=== PATIENT | female | born 1980 | race Caucasian/White ===

== ENCOUNTER 2023-05-15 14:55 | Emergency (ER) | payer OTHER, SELFPAY ==
[2023-05-15 15:04] VITALS: BP 99/50
[2023-05-15 15:37] LABS: % Basophils 0.4 % (0-2); % Eosinophils 0.1 % (0-6); % Immature Granulocytes 0.4 % (0-0.5); % Lymphocytes 15.6 % (20.5-51.1); % Monocytes 6.4 % (1.7-9.3); % Neutrophils 77.1 % (42.2-75.2); Absolute Lymphocytes 1.1 10^3/uL (1.2-3.4); Absolute Monocytes 0.4 10^3/uL (0.1-0.6); Absolute Neutrophils 5.2 10^3/uL (1.4-6.5); Hematocrit 34.4 % (37.0-47.0); Hemoglobin 11.3 g/dL (12.0-16.0); Mean Corp Hgb Conc. 32.8 g/dL (33.0-37.0); Mean Corpuscular Hgb 27.9 pg (27.0-31.0); Mean Corpuscular Volume 84.9 fL (81.0-99.0); Mean Platelet Volume 11.9 fL (7.4-10.4); Nucleated Red Blood Cells % 0 %; Platelet Count 222 10^3/uL (130-400); Red Blood Cell Count 4.05 10^6/uL (4.20-5.40); Red Cell Dist. Width 13.5 % (11.5-14.5); White Blood Cell Count 6.7 10^3/uL (4.8-10.8)
[2023-05-15 15:48] LABS: COVID-19 Antigen Negative (Negative)
[2023-05-15 16:02] LABS: ALT (SGPT) 20 U/L (0-35); AST (SGOT) 26 U/L (14-36); Albumin 4.7 g/dl (3.5-5.0); Alkaline Phosphatase 57 U/L (38-126); Blood Urea Nitrogen 13 mg/dl (7-17); Calcium 9.1 mg/dl (8.4-10.2); Carbon Dioxide 24 mmol/L (22-30); Chloride 106 mmol/L (98-107); Glucose 82 mg/dl (70-99); Sodium 135 mmol/L (135-145); Total Bilirubin 1.1 mg/dl (0.2-1.3); Total Protein 7.2 g/dl (6.3-8.2); eGFR > 60.00
[2023-05-15 16:14] LABS: Potassium 4.1 mmol/L (3.5-5.1)
[2023-05-15 18:11] LABS: Urine Albumin Negative (Neg - Trace); Urine Bilirubin Negative (Negative); Urine Character Clear (Clear); Urine Color Yellow; Urine Glucose Negative (Negative); Urine Ketone 1+ (Negative); Urine Leukocyte Negative (Negative); Urine Nitrite Negative (Negative); Urine Occult Blood Negative (Negative); Urine Specific Gravity 1.015 (<1.030); Urine Urobilinogen Negative (Neg - 1+)
[2023-05-15 19:02] LABS: HCG, Serum Qualitative Screen Negative
--- NOTE | 2023-05-15 23:07 | ED.GENMED ---
History of Present Illness
General
Chief Complaint: Fatigue
Source: patient
Exam Limitations: none
Time Seen by Provider: 05/15/23 16:41
Nursing documentation reviewed up to this point in time: agreed with
Travel History
Have you had any contact with someone who has COVID-19?: No
Do you have any symptoms of coronavirus? Fever > 100 degrees, chills, cough, shortness of breath, sore throat, loss of taste or smell, muscle aches, or headache?: No
History of Present Illness
History of Present Illness:
Patient to ED with complaint of fatigue, chills, sensation of burning in abd. States symptoms started yesterday. States 1 week ago she had yeast infection. Treated with Diflucan. States she took another dose last PM fearing that her symtpms were
eturning. No improvement. Brought self to ED for eval. No fever/chills, n/v/d.
Past History
Past History
ED Past Medical History: GERD, Psychiatric (Generalized anxiety and depression) and Other (Vertigo)
ED Past Surgical History: Appendectomy and Tonsilectomy
Social History
Tobacco: Non-smoker
Alcohol: Occasional
Personal:
Living: with family
Employment: Not employed
Family History
Family History: Diabetes, Hypertension and Other (Alzheimer's)
Review of Systems
Review of Systems
Allergies reviewed?: Yes
All Other Systems: ROS reviewed and negative except as documented in HPI and ROS
Constitutional: Reports no symptoms
EENT: Reports no symptoms
Respiratory: Reports no symptoms
Cardiac: Reports no symptoms
ABD/GI: Reports other (abdominal burning)
: Reports other (buring after urination)
Musculoskeletal: Reports no symptoms
Skin: Reports no symptoms
Neurological: Reports no symptoms
Psychiatric: Reports no symptoms
Phy Exam
General Physical Exam
General Presentation: well appearing and no apparent distress
General age: appears stated age
General Skin: warm and dry
General Habitus: normal
General Mental: alert
Gastrointestinal Exam
Gastrointestinal Exam: normal bowel sounds, non tender, soft, no organomegaly, non distended and no cva tenderness
Genitourinary Exam Female
Exam Female: no bleeding, no CMT, no mass and no vaginal discharge
Vaginal Exam: normal
Vaginal Bleeding: none
Visual exam of cervix: os closed
Musculoskeletal Exam
Musculoskeletal Exam: full ROM and neuro vasc intact
Skin Exam
Skin Exam: normal color, warm/dry and no rash
Psychiatric Exam
Psychiatric Exam: normal mood/affect
Course
Orders/Labs/Results
Orders:
Orders
05/15/23 15:09
Electrocardiogram (*1) Urgent
Reason for Study: Shortness of Breath
EKG- Treatment ONCE
05/15/23 15:13
CMP [Comprehensive Metabolic Panel] Urgent
Complete Blood Count/With Diff Urgent
HCG, Serum Qualitative Screen Urgent
Comment: ADD ON
05/15/23 15:25
COVID-19 Antigen Urgent
Source: Nasal Swab
Influenza A+B Rapid Molecular Urgent
[facility] Source: Nasal Swab
Specimen Description:
RSV [Respiratory Syncytial Virus] Urgent
[facility] Source: Nasal Swab
Specimen Description:
Date Specimen was Collected: 05/15/23
Time Specimen was Collected: 15:23
05/15/23 16:53
Add On- LAB Urgent
Tests Added?: HCG serum qualitative
05/15/23 17:01
Urinalysis Reflex To Culture Urgent
Date Specimen was Collected: 05/15/23
Time Specimen was Collected: 16:59
Chlamydia/GC by PCR Urgent
[facility] Source: U
Specimen Description:
Source:: URINE
Date Specimen was Collected: 05/15/23
Time Specimen was Collected: 16:59
Comment: Add on per Liberty Rivera
05/15/23 17:27
Add On- LAB Urgent
Tests Added?: Chlamydia/GC urine
05/15/23 17:37
Genital Culture Urgent
[facility] Source: Vagina
Specimen Description:
Date Specimen was Collected: 05/15/23
Time Specimen was Collected: 17:28
Trichomonas - Wet Prep Urgent
[facility] Source: Vagina
Specimen Description:
Date Specimen was Collected: 05/15/23
Time Specimen was Collected: 17:28
Abnormal Lab Results
05/15/23 05/15/23
15:13 17:01
RBC 4.05 L 10^6/uL
(4.20-5.40)
Hgb 11.3 L g/dL
(12.0-16.0)
Hct 34.4 L %
(37.0-47.0)
MCHC 32.8 L g/dL
(33.0-37.0)
MPV 11.9 H fL
(7.4-10.4)
Absolute Lymphs (auto) 1.1 L 10^3/uL
(1.2-3.4)
Neutrophils % 77.1 H %
(42.2-75.2)
Lymphocytes % 15.6 L %
(20.5-51.1)
Creatinine 0.5 L mg/dL
(0.6-1.0)
Urine Ketones 1+ A
(Negative)
05/15/23 15:13
05/15/23 15:13
Vital Signs
Initial and Last Documented VS:
Initial Vital Signs
Temp Pulse Resp BP Pulse Ox
98.6 F 62 16 99/50 100
05/15/23 15:04 05/15/23 15:04 05/15/23 15:04 05/15/23 15:04 05/15/23 15:04
Last Documented Vital Signs
Temp Pulse Resp BP Pulse Ox
98.6 F 62 16 99/50 100
05/15/23 15:04 05/15/23 15:04 05/15/23 15:04 05/15/23 15:04 05/15/23 15:04
*Radiology
Radiology exam reviewed: radiology read reviewed
*Pulse Oximetry
Patient hypoxic: no
*Critical Care Note
Total Time (30-74mins, 75-104mins- exclusive of procedures): Not Applicable
ED Attending Note
-
Portions of this chart may have been created with voice recognition software.� Occasional wrong word or��sound alike� substitutions may have occurred due to the inherent limitations of voice recognition software.
Discharge Plan
Departure
Patient Disposition: Home (Routine Discharge)
Date of Disposition: 05/15/23
Time of Disposition: 18:22
Patient with high blood pressure during this ER visit?: No
Condition: Good
Discharge Problem:
Fatigue
Instructions: Fatigue (DC)
Prescriptions:
No Action
famotidine 40 MG tablet
40 mg PO PRN PRN (Reason: GERD)
buspirone 5 MG tablet
0.5 tab PO DAILY
guaifenesin [Mucus Relief ER] 600 MG tablet extended release 12hr
600 mg PO Q12H
Referrals:
Kali Aguilar MD [Family Provider] - Follow up in 2-3 days
Stand Alone Forms: Return to Work
Activity Restrictions/Additional Instructions:
Follow up with your panel wirer, Return to the emergency deparatment for any changes in/worsening of your symptoms.
Interventions
Interventions:
*Risk Screen - Suicide Last Done: 05/15/23 15:04
*General Assessment Last Done: 05/15/23 15:04
*Neglect/Abuse Screening Last Done: 05/15/23 15:04
*ED COVID-19 Vaccine History Last Done: 05/15/23 15:04
*Nursing Disposition Last Done: 05/15/23 18:49
Discharge Date and Time
Discharge Date/Time: 05/15/23 18:49
== END 2023-05-15 18:49 | disposition home or self-care (01) ==
LOC: EMR 14:55
PROVIDERS: Nurse Practitioner; EMERGENCY PHYSICIAN Emergency Medicine; FAMILY PHYSICIAN Family Medicine
DX: R53.83 Other fatigue (principal); R68.83 Chills (without fever); R10.9 Unspecified abdominal pain; Z11.52 Encounter for screening for COVID-19; K21.9 Gastro-esophageal reflux disease without esophagitis; F41.1 Generalized anxiety disorder; F32.A Depression, unspecified; Z88.8 Allergy status to other drugs, medicaments and biological substances; Z91.018 Allergy to other foods
CPT/HCPCS: 99283; 80053; 81003; 84703; 85025; 87070; 87210; 87491; 87502; 87591; 87807; 87811; 93005

== ENCOUNTER 2023-05-18 15:26 | Emergency (ER) | payer OTHER, SELFPAY ==
[2023-05-18 15:41] VITALS: BP 93/66
[2023-05-18 16:06] LABS: % Basophils 0.5 % (0-2); % Eosinophils 0.4 % (0-6); % Immature Granulocytes 0.4 % (0-0.5); % Lymphocytes 13.5 % (20.5-51.1); % Monocytes 6.6 % (1.7-9.3); % Neutrophils 78.6 % (42.2-75.2); Absolute Monocytes 0.5 10^3/uL (0.1-0.6); Absolute Neutrophils 5.9 10^3/uL (1.4-6.5); Hematocrit 34.9 % (37.0-47.0); Hemoglobin 11.5 g/dL (12.0-16.0); Mean Corpuscular Volume 85.1 fL (81.0-99.0); Mean Platelet Volume 11.4 fL (7.4-10.4); Nucleated Red Blood Cells % 0 %; Platelet Count 221 10^3/uL (130-400); Red Cell Dist. Width 13.3 % (11.5-14.5); White Blood Cell Count 7.5 10^3/uL (4.8-10.8)
[2023-05-18 16:27] LABS: ALT (SGPT) 17 U/L (0-35); AST (SGOT) 19 U/L (14-36); Albumin 4.2 g/dl (3.5-5.0); Alkaline Phosphatase 56 U/L (38-126); Blood Urea Nitrogen 19 mg/dl (7-17); Calcium 9.4 mg/dl (8.4-10.2); Carbon Dioxide 25 mmol/L (22-30); Chloride 102 mmol/L (98-107); Glucose 90 mg/dl (70-99); Potassium 4.2 mmol/L (3.5-5.1); Sodium 135 mmol/L (135-145); Total Bilirubin 0.7 mg/dl (0.2-1.3); Total Protein 6.7 g/dl (6.3-8.2); eGFR > 60.00
--- NOTE | 2023-05-18 17:45 | EDRN ---
Lenora Rivera RN in room w/ pt.
[2023-05-18 17:48] VITALS: BP 101/71; BMI 19.8
[2023-05-18 19:15] LABS: Urine Albumin Negative (Neg - Trace); Urine Bilirubin Negative (Negative); Urine Character Clear (Clear); Urine Color Straw; Urine Glucose Negative (Negative); Urine Ketone Negative (Negative); Urine Leukocyte Trace (Negative); Urine Nitrite Negative (Negative); Urine Occult Blood 2+ (Negative); Urine Urobilinogen Negative (Neg - 1+); Urine pH 6.5 (5.0-9.0)
[2023-05-18 19:53] LABS: Urine White Cell None Seen /HPF (0-5)
[2023-05-18 20:30] VITALS: BP 106/69
[2023-05-18 20:31] VITALS: BP 106/69
--- NOTE | 2023-05-18 21:44 | ED.GENMED ---
History of Present Illness
General
Chief Complaint: Vaginal Bleeding
Source: patient
Exam Limitations: none
Time Seen by Provider: 05/18/23 17:44
Nursing documentation reviewed up to this point in time: agreed with
Travel History
Have you had any contact with someone who has COVID-19?: No
Do you have any symptoms of coronavirus? Fever > 100 degrees, chills, cough, shortness of breath, sore throat, loss of taste or smell, muscle aches, or headache?: No
History of Present Illness
History of Present Illness:
Patient to ED with complaint of vaginal bleeding x 2 days. States she had a normal period 2 weeks ago. Came to ED for eval. Denies fever/chills, n/v/d. Reports passing 'tissue' in her urine. She was seen by me in ED 3 days ago for fatigue. Had
multiple complaints at that visit, including vaginal discharge. Pelvic exam performed by me at that visit, no discharge noted, no concerning findings. I sent vaginal cultures as well as STD testing, all neg. Brought self to ED today for eval of
vaginal bleeding.
Past History
Past History
ED Past Medical History: GERD, Psychiatric (Generalized anxiety and depression) and Other (Vertigo)
ED Past Surgical History: Appendectomy and Tonsilectomy
Social History
Tobacco: Non-smoker
Alcohol: Occasional
Personal:
Living: with family
Employment: Not employed
Family History
Family History: Diabetes, Hypertension and Other (Alzheimer's)
Review of Systems
Review of Systems
Allergies reviewed?: Yes
All Other Systems: ROS reviewed and negative except as documented in HPI and ROS
Constitutional: Reports no symptoms
EENT: Reports no symptoms
Respiratory: Reports no symptoms
Cardiac: Reports no symptoms
ABD/GI: Reports no symptoms
: Reports bleeding
Musculoskeletal: Reports no symptoms
Skin: Reports no symptoms
Neurological: Reports no symptoms
Psychiatric: Reports no symptoms
Phy Exam
General Physical Exam
General Presentation: well appearing and no apparent distress
General Habitus: normal
General Mental: alert
Gastrointestinal Exam
Gastrointestinal Exam: non tender, soft and no organomegaly
Genitourinary Exam Female
Exam Female: other (EXam deferred. Complete pelvic exam by me 2 days ago in ED, no concerning findings. Pelvic US in ED tonight.)
Musculoskeletal Exam
Musculoskeletal Exam: full ROM
Skin Exam
Skin Exam: normal color
Psychiatric Exam
Psychiatric Exam: normal mood/affect
Course
Orders/Labs/Results
Orders:
Orders
05/18/23 15:58
CMP [Comprehensive Metabolic Panel] Urgent
Complete Blood Count/With Diff Urgent
05/18/23 17:46
US Pelvis W Transvag Combined Urgent
Reason For Exam: abnormal bleeding
05/18/23 19:04
Urinalysis Reflex To Culture Urgent
Date Specimen was Collected: 05/18/23
Time Specimen was Collected: 19:03
Urine Microscopic Reflex Cult Urgent
Abnormal Lab Results
05/18/23 05/18/23
15:58 19:04
RBC 4.10 L 10^6/uL
(4.20-5.40)
Hgb 11.5 L g/dL
(12.0-16.0)
Hct 34.9 L %
(37.0-47.0)
MPV 11.4 H fL
(7.4-10.4)
Absolute Lymphs (auto) 1.0 L 10^3/uL
(1.2-3.4)
Neutrophils % 78.6 H %
(42.2-75.2)
Lymphocytes % 13.5 L %
(20.5-51.1)
BUN 19 H mg/dl
(7-17)
Ur Occult Blood Reflex 2+ A
(Negative)
Leukocyte Esterase Rfl Trace A
(Negative)
Urine RBC 7-10 A /HPF
(0-2)
05/18/23 15:58
05/18/23 15:58
Vital Signs
Initial and Last Documented VS:
Initial Vital Signs
Temp Pulse Resp BP Pulse Ox
99.4 F 79 18 93/66 98
05/18/23 15:41 05/18/23 15:41 05/18/23 15:41 05/18/23 15:41 05/18/23 15:41
Last Documented Vital Signs
Temp Pulse Resp BP Pulse Ox
98.8 F 69 18 106/69 100
05/18/23 20:31 05/18/23 20:31 05/18/23 20:31 05/18/23 20:31 05/18/23 20:31
*Radiology
Radiology exam reviewed: radiology read reviewed
*Pulse Oximetry
Patient hypoxic: no
*Critical Care Note
Total Time (30-74mins, 75-104mins- exclusive of procedures): Not Applicable
Update Note
Update Note:
Labs, US results discussed with patient. Will discharge home. She will follow up with access developer next week. Given instructions on s/s to return to [facility] and she is agreeable to plan.
ED Attending Note
-
Portions of this chart may have been created with voice recognition software.� Occasional wrong word or��sound alike� substitutions may have occurred due to the inherent limitations of voice recognition software.
Discharge Plan
Departure
Patient Disposition: Home (Routine Discharge)
Date of Disposition: 05/18/23
Time of Disposition: 20:10
Patient with high blood pressure during this ER visit?: No
Condition: Good
Covid-19: Not Applicable
Discharge Problem:
Abnormal vaginal bleeding
Instructions: Uterine Fibroids (DC)
Prescriptions:
No Action
famotidine 40 MG tablet
40 mg PO PRN PRN (Reason: GERD)
buspirone 5 MG tablet
0.5 tab PO DAILY
guaifenesin [Mucus Relief ER] 600 MG tablet extended release 12hr
600 mg PO Q12H
Referrals:
Kali Aguilar MD [Family Provider] -
Activity Restrictions/Additional Instructions:
Follow up with your pony edger
Interventions
Interventions:
*Risk Screen - Suicide Last Done: 05/18/23 15:41
*General Assessment Last Done: 05/18/23 17:48
*Neglect/Abuse Screening Last Done: 05/18/23 15:41
ED- Fall Risk Assessment Last Done: 05/18/23 17:48
*ED COVID-19 Vaccine History Last Done: 05/18/23 15:41
*Nursing Disposition Last Done: 05/18/23 20:32
ED-Female Genitourinary Assessment Last Done: 05/18/23 17:48
Discharge Date and Time
Discharge Date/Time: 05/18/23 20:33
== END 2023-05-18 20:33 | disposition home or self-care (01) ==
LOC: EMR 15:26
PROVIDERS: Nurse Practitioner; EMERGENCY PHYSICIAN Student in an Organized Health Care Education/Training Program; FAMILY PHYSICIAN Family Medicine
DX: N93.9 Abnormal uterine and vaginal bleeding, unspecified (principal)
CPT/HCPCS: 99284; 76830; 76856; 80053; 81003; 81015; 85025

== ENCOUNTER 2023-08-26 23:56 | Emergency (ER) | payer OTHER, SELFPAY ==
[2023-08-27] VITALS: BP 110/68; BMI 18.9
[2023-08-27 00:13] LABS: % Basophils 0.8 % (0-2); % Eosinophils 0.9 % (0-6); % Immature Granulocytes 0.5 % (0-0.5); % Lymphocytes 23.4 % (20.5-51.1); % Monocytes 8.1 % (1.7-9.3); % Neutrophils 66.3 % (42.2-75.2); Absolute Basophils 0.1 10^3/uL (0-0.2); Absolute Eosinophils 0.1 10^3/uL (0-0.7); Absolute Lymphocytes 1.5 10^3/uL (1.2-3.4); Absolute Monocytes 0.5 10^3/uL (0.1-0.6); Absolute Neutrophils 4.3 10^3/uL (1.4-6.5); Hemoglobin 11.1 g/dL (12.0-16.0); Mean Corp Hgb Conc. 32.6 g/dL (33.0-37.0); Mean Corpuscular Hgb 27.1 pg (27.0-31.0); Mean Corpuscular Volume 82.9 fL (81.0-99.0); Mean Platelet Volume 11.1 fL (7.4-10.4); Nucleated Red Blood Cells % 0 %; Platelet Count 211 10^3/uL (130-400); Red Cell Dist. Width 13.7 % (11.5-14.5); White Blood Cell Count 6.5 10^3/uL (4.8-10.8)
[2023-08-27 00:21] LABS: HCG, Serum Qualitative Screen Negative
[2023-08-27 00:26] LABS: ALT (SGPT) 11 U/L (0-35); AST (SGOT) 19 U/L (14-36); Albumin 4.6 g/dl (3.5-5.0); Alkaline Phosphatase 66 U/L (38-126); Blood Urea Nitrogen 15 mg/dl (7-17); Calcium 9.5 mg/dl (8.4-10.2); Carbon Dioxide 24 mmol/L (22-30); Chloride 105 mmol/L (98-107); Estimated Creatinine Clearance 95 ml/min; Glucose 108 mg/dl (70-99); Sodium 139 mmol/L (135-145); Total Bilirubin 0.7 mg/dl (0.2-1.3); Total Protein 7.1 g/dl (6.3-8.2); eGFR > 60.00
--- NOTE | 2023-08-27 01:01 | ED.GENMED ---
History of Present Illness
General
Chief Complaint: Headache
Source: patient
Exam Limitations: none
Time Seen by Provider: 08/27/23 00:35
Nursing documentation reviewed up to this point in time: agreed with
Travel History
Have you had any contact with someone who has COVID-19?: No
Do you have any symptoms of coronavirus? Fever > 100 degrees, chills, cough, shortness of breath, sore throat, loss of taste or smell, muscle aches, or headache?: No
History of Present Illness
History of Present Illness:
42-year-old female with history of migraines states she developed a typical migraine with frontal 'pulsing' pain yesterday and today she states the pulsing is better its 'very mild,' but about 2 hours ago while making tea in her kitchen she saw in
the right lateral visual field 'flashing' that lasted about 2 minutes then subsided and has not returned. She denies headache now. Denies any other change in vision. Denies n/v, dizziness.
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 She has been evaluated by neurology and ophthalmology. Her last ophthalmology visit was a month ago and
everything was 'fine.'
Past History
Past History
ED Past Medical History: GERD, Psychiatric (Generalized anxiety and depression), Other (Vertigo) and Other (migraines)
ED Past Surgical History: Appendectomy and Tonsilectomy
Social History
Tobacco: Non-smoker
Alcohol: Occasional
Personal:
Living: with family
Employment: Not employed
Family History
Family History: Diabetes, Hypertension and Other (Alzheimer's)
Review of Systems
Review of Systems
Allergies reviewed?: Yes
All Other Systems: ROS reviewed and negative except as documented in HPI and ROS
Constitutional: Denies fever
EENT: Reports other (Episode of flashing lights right lateral visual field)
ABD/GI: Denies nausea
Skin: Reports no symptoms
Neurological: Reports headache; Denies dizzy, weakness or numbness
Phy Exam
Physical Exam
Physical Exam:
GENERAL: No acute distress. A&Ox3.
CONSTITUTIONAL: Afebrile.
EYES: PERRL, conjunctivae normal, EOM's intact, visual oliveros intact,
Neck: Supple
ENMT: moist mucus membranes, Pharynx nl
RESPIRATORY: Regular respirations, nonlabored, lungs clear.
CARDIOVASCULAR: Regular rate and rhythm, no murmurs, no rubs.
GI: Soft, nontender
MUSCULOSKELETAL: Moves with ease. Well perfused.
SKIN: Warm, dry, pink
PSYCH: Normal mood and affect. Well kept, interactive and appropriate
NEUROLOGIC: Awake, alert and oriented. Speech clear. Ambulates well with steady gait. No focal neurological deficits
Course
Orders/Labs/Results
Orders:
Orders
08/27/23 00:03
Test Result ONCE
08/27/23 00:05
Complete Blood Count/With Diff Urgent
Comprehensive Metabolic Panel Urgent
HCG, Serum Qualitative Screen Urgent
Abnormal Lab Results
08/27/23
00:05
RBC 4.10 L 10^6/uL
(4.20-5.40)
Hgb 11.1 L g/dL
(12.0-16.0)
Hct 34.0 L %
(37.0-47.0)
MCHC 32.6 L g/dL
(33.0-37.0)
MPV 11.1 H fL
(7.4-10.4)
Glucose 108 H mg/dl
(70-99)
08/27/23 00:05
08/27/23 00:05
Vital Signs
Initial and Last Documented VS:
Initial Vital Signs
Temp Pulse Resp BP Pulse Ox
98.5 F 65 18 110/68 99
08/27/23 00:00 08/27/23 00:00 08/27/23 00:00 08/27/23 00:00 08/27/23 00:00
Last Documented Vital Signs
Temp Pulse Resp BP Pulse Ox
98.5 F 65 18 110/68 99
08/27/23 00:00 08/27/23 00:00 08/27/23 00:00 08/27/23 00:00 08/27/23 00:45
MDM/Problems Addressed
Differential Diagnosis Includes:
ocular migraine, TIA
MDM/Problems Addressed:
42-year-old female with history of migraines states she developed a typical migraine with frontal 'pulsing' pain yesterday and today she states the pulsing is better its 'very mild,' but about 2 hours ago while making tea in her kitchen she saw in
the right lateral visual field 'flashing' that lasted about 2 minutes then subsided and has not returned. She denies headache now. Denies any other change in vision. Denies n/v, dizziness.
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 She has been evaluated by neurology and ophthalmology. Her last ophthalmology visit was a month ago and
everything was 'fine.'
Afebrile, NAD
No focal neuro deficits, no recent head injury, asymptomatic now, ambulating with normal gait
1:00 AM
CBC normal
CMP normal
hCG negative
Patient is totally asymptomatic, no reason to suspect TIA as she has no risk factors
History and exam consistent with an ocular migraine
*Critical Care Note
Total Time (30-74mins, 75-104mins- exclusive of procedures): Not Applicable
ED Attending Note
-
Portions of this chart may have been created with voice recognition software.� Occasional wrong word or��sound alike� substitutions may have occurred due to the inherent limitations of voice recognition software.
Discharge Plan
Departure
Patient Disposition: Home (Routine Discharge)
Date of Disposition: 08/27/23
Time of Disposition: 00:59
Patient with high blood pressure during this ER visit?: No
Condition: Good
Discharge Problem:
Ocular migraine
Instructions: Migraines (DC)
Prescriptions:
No Action
famotidine 40 MG tablet
40 mg PO PRN PRN (Reason: GERD)
buspirone 5 MG tablet
0.5 tab PO DAILY
guaifenesin [Mucus Relief ER] 600 MG tablet extended release 12hr
600 mg PO Q12H
Referrals:
Sagar Draper MD [Active] - As needed
Sharmin Ragland CRNP [Family Provider] -
Activity Restrictions/Additional Instructions:
As we discussed, you most likely had an ocular migraine.
I see nothing worrisome in your exam.
I have provided you with the name of a neurologist to use if needed
Interventions
Interventions:
*Risk Screen - Suicide Last Done: 08/27/23 00:00
*General Assessment Last Done: 08/27/23 00:00
*Neglect/Abuse Screening Last Done: 08/27/23 00:00
*ED COVID-19 Vaccine History Last Done: 08/27/23 00:00
*Nursing Disposition Last Done: 08/27/23 01:26
ED- Neurological Assessment Last Done: 08/27/23 00:07
Discharge Date and Time
Discharge Date/Time: 08/27/23 01:27
Print Language: [place]
== END 2023-08-27 01:27 | disposition home or self-care (01) ==
LOC: EMR 23:56
PROVIDERS: Emergency Medicine; EMERGENCY PHYSICIAN Emergency Medicine; FAMILY PHYSICIAN Nurse Practitioner Family
DX: G43.109 Migraine with aura, not intractable, without status migrainosus (principal); K21.9 Gastro-esophageal reflux disease without esophagitis; F41.1 Generalized anxiety disorder; F32.A Depression, unspecified; E11.9 Type 2 diabetes mellitus without complications; I10 Essential (primary) hypertension; G30.9 Alzheimer's disease, unspecified; F02.80 Dementia in other diseases classified elsewhere, unspecified severity, without behavioral disturbance, psychotic disturbance, mood disturbance, and anxiety; Z82.49 Family history of ischemic heart disease and other diseases of the circulatory system; Z83.3 Family history of diabetes mellitus; Z90.49 Acquired absence of other specified parts of digestive tract
CPT/HCPCS: 99283; 80053; 84703; 85025

== ENCOUNTER 2023-09-08 09:04 | Emergency (ER) | payer OTHER, SELFPAY ==
[2023-09-08 09:13] VITALS: BP 105/56
[2023-09-08 11:00] VITALS: BP 111/70
--- NOTE | 2023-09-08 12:13 | ED.GENMED ---
History of Present Illness
General
Chief Complaint: Headache
Source: patient
Exam Limitations: none
Time Seen by Provider: 09/08/23 09:33
Nursing documentation reviewed up to this point in time: agreed with
Travel History
Have you had any contact with someone who has COVID-19?: No
Do you have any symptoms of coronavirus? Fever > 100 degrees, chills, cough, shortness of breath, sore throat, loss of taste or smell, muscle aches, or headache?: No
History of Present Illness
History of Present Illness:
PT IS A 42 Y/O F
with h/o mgiraines 'cervogenic' for a year
also h/o anxiety, depression, eating disorder, anemia
says she is not under neuro care and has not had neuro imaging in a long time
here for ongoing chronic tension headache symptoms that she describes as 'inflammation' and 'tightness' and 'pressure that needs to be released.'
she says she has a lot of stress from a marriage separation and believes that to be the trigger
she has seen her PCP and has been to ortho, but not neuro over the past year
it was suggested for her to try a sleep aide because she tries to sleep and at night she feels like her mind cannot relax which 'makes the inflammation in my head worse.'
Past History
Past History
ED Past Medical History: GERD, Psychiatric (Generalized anxiety and depression), Other (Vertigo) and Other (migraines)
ED Past Surgical History: Appendectomy and Tonsilectomy
Social History
Tobacco: Non-smoker
Alcohol: Occasional
Personal:
Living: with family
Employment: Not employed
Family History
Family History: Diabetes, Hypertension and Other (Alzheimer's)
Course
Vital Signs
Initial and Last Documented VS:
Initial Vital Signs
Temp Pulse BP Pulse Ox
98.6 F 95 105/56 96
09/08/23 09:13 09/08/23 09:13 09/08/23 09:13 09/08/23 09:13
Last Documented Vital Signs
Temp Pulse BP Pulse Ox
98.6 F 95 105/56 96
09/08/23 09:13 09/08/23 09:13 09/08/23 09:13 09/08/23 09:13
ED Attending Note
-
Portions of this chart may have been created with voice recognition software.� Occasional wrong word or��sound alike� substitutions may have occurred due to the inherent limitations of voice recognition software.
Discharge Plan
Departure
Patient Disposition: Home (Routine Discharge)
Date of Disposition: 09/08/23
Time of Disposition: 10:15
Discharge Problem:
Chronic tension headache
Instructions: Headache, Adult (DC)
Prescriptions:
No Action
famotidine 40 MG tablet
40 mg PO PRN PRN (Reason: GERD)
buspirone 5 MG tablet
0.5 tab PO DAILY
guaifenesin [Mucus Relief ER] 600 MG tablet extended release 12hr
600 mg PO Q12H
Referrals:
Sagar Draper MD [Active] - Follow up in 10 days (neuro)
Activity Restrictions/Additional Instructions:
TRY MOTRIN 200 MG OR 400 MG 3 TIMES A DAY WITH FOOD FOR 2-5 DAYS
YOU CAN TRY OVER THE COUNTER MELATONIN
STOP IT IF YOU HAVE SIDE EFFECTS
FOLLOW UP WITH YOUR DOCTOR AND A NEUROLOGIST FOR THESE SYMPTOMS
RETURN FOR ANY SUDDEN WOSRENING OF HEADACHE, VOMITING, CONFUSION, WEAKNESS, NUMBNESS, VISION LOSS OR ANY CONCERNS.
Interventions
Interventions:
*Risk Screen - Suicide Last Done: 09/08/23 09:17
*General Assessment Last Done: 09/08/23 09:17
*Neglect/Abuse Screening Last Done: 09/08/23 09:17
Discharge Date and Time
Print Language: [place] CITIZEN
== END 2023-09-08 11:05 | disposition home or self-care (01) ==
LOC: EMR 09:04
PROVIDERS: EMERGENCY PHYSICIAN Emergency Medicine; FAMILY PHYSICIAN Nurse Practitioner Family
DX: G44.209 Tension-type headache, unspecified, not intractable (principal); F32.A Depression, unspecified; F50.9 Eating disorder, unspecified; D64.9 Anemia, unspecified; Z63.5 Disruption of family by separation and divorce; K21.9 Gastro-esophageal reflux disease without esophagitis; F41.1 Generalized anxiety disorder; F43.10 Post-traumatic stress disorder, unspecified; Z88.8 Allergy status to other drugs, medicaments and biological substances; Z91.018 Allergy to other foods
CPT/HCPCS: 99282

== ENCOUNTER 2024-01-06 13:27 | Emergency (ER) | payer OTHER, SELFPAY ==
[2024-01-06 13:29] VITALS: BP 115/66
--- NOTE | 2024-01-06 14:27 | ED.GENMED ---
History of Present Illness
General
Chief Complaint: Breathing Problem
Source: patient
Time Seen by Provider: 01/06/24 14:05
History of Present Illness
History of Present Illness:
43-year-old female presenting to the emergency department for evaluation after she started experiencing what she believed to be a potential allergic reaction to Augmentin. Patient was started on this by urgent care yesterday for presumed sinus
infection however patient states she does not believe that she has a sinus infection to begin with. She does note that she was diagnosed by an ENT with chronic rhinitis and has been recommended to take some steroids however patient states she does
not feel that she needs the steroids and is concerned about the side effects from this medication. She also endorses a migraine headache that she has had pretty much continuously for about 1 year and was seen by neurology but preferred to do
homeopathic midis. Patient denies any fevers, mucopurulent discharge, cough or any other concerns.
Past History
Past History
ED Past Medical History: GERD, Psychiatric (Generalized anxiety and depression), Other (Vertigo) and Other (migraines)
ED Past Surgical History: Appendectomy and Tonsilectomy
Social History
Tobacco: Non-smoker
Alcohol: Occasional
Drug: None
Personal:
Living: with family
Employment: Not employed
Family History
Family History: Diabetes, Hypertension and Other (Alzheimer's)
Review of Systems
Review of Systems
All Other Systems: ROS reviewed and negative except as documented in HPI and ROS
Phy Exam
Physical Exam
Physical Exam:
GENERAL: Alert , in no apparent distress
HEAD: NCAT
EYE: conjunctiva clear
NECK: Supple, no significant adenopathy
ENT: o/p clr, mmm.
CARDIAC: Regular rate and rhythm
LUNGS: Clear breath sounds bilaterally, no acute respiratory distress, no wheezes/rales/rhonchi
NEUROLOGICAL: Alert and oriented
SKIN: Warm and dry, skin intact.
MUSCULOSKELETAL: well perfused.
PSYCH: Normal and appropriate interaction.
Scores
Heart Failure Risk
Heart Failure Risk Score: Not Applicable
Heart Score for Chest Pain Patients
STEMI patient?: Not applicable
Withdrawal Assessment of Alcohol
Withdrawal Assessment Completed?: Not applicable
Course
Orders/Labs/Results
Orders:
Orders
01/06/24 13:32
EKG [Electrocardiogram (*1)] Urgent
Reason for Study: Shortness of Breath
EKG- Treatment ONCE
Vital Signs
Initial and Last Documented VS:
Initial Vital Signs
Temp Pulse Resp BP Pulse Ox
98.4 F 76 18 115/66 99
01/06/24 13:29 01/06/24 13:29 01/06/24 13:29 01/06/24 13:29 01/06/24 13:29
Last Documented Vital Signs
Temp Pulse Resp BP Pulse Ox
98.1 F 71 16 118/66 100
01/06/24 15:02 01/06/24 15:02 01/06/24 15:02 01/06/24 15:02 01/06/24 15:02
MDM/Problems Addressed
Differential Diagnosis Includes:
allergic rhinitis, chronic sinusitis, viral syndrome, no concern for bacterial infection nor allergic reaction
MDM/Problems Addressed:
43-year-old female presenting to the emergency department for evaluation of what she suspected to be a possible allergic reaction after taking Augmentin. Patient states that since taking the medicine she felt as if her breathing was a little bit
more shallow. She denies rashes, difficulty breathing, vomiting, throat closing sensation. At this time I see no evidence for allergic reaction. Patient okay to d/c augmentin. Advised some nasal spray and calritin prn. Stable for d/c home
*Pulse Oximetry
Patient hypoxic: no
*EKG
Interpreted by ED Provider?: Yes
Comparison EKG: no changes
Heart Rate: 68
Rate: normal
Rhythm: sinus and PAC's
Ischemia: no ischemia
*Critical Care Note
Total Time (30-74mins, 75-104mins- exclusive of procedures): Not Applicable
ED Attending Note
-
Portions of this chart may have been created with voice recognition software.� Occasional wrong word or��sound alike� substitutions may have occurred due to the inherent limitations of voice recognition software.
Discharge Plan
Departure
Patient Disposition: Home (Routine Discharge)
Date of Disposition: 01/06/24
Time of Disposition: 14:27
Patient with high blood pressure during this ER visit?: No
Discharge Problem:
Medication side effect
Instructions: Side effects from medicines
Prescriptions:
No Action
famotidine 40 MG tablet
40 mg PO PRN PRN (Reason: GERD)
buspirone 5 MG tablet
0.5 tab PO DAILY
guaifenesin [Mucus Relief ER] 600 MG tablet extended release 12hr
600 mg PO Q12H
Referrals:
Sharmin Ragland CRNP [Family Provider] -
Interventions
Interventions:
*Risk Screen - Suicide Last Done: 01/06/24 13:32
*General Assessment Last Done: 01/06/24 13:32
*Neglect/Abuse Screening Last Done: 01/06/24 13:32
ED- Fall Risk Assessment Last Done: 01/06/24 15:00
*ED COVID-19 Vaccine History Last Done: 01/06/24 13:32
*Nursing Disposition Last Done: 01/06/24 15:02
ED- Cardiac Assessment Last Done: 01/06/24 15:00
ED- Pulmonary Assessment Last Done: 01/06/24 15:00
Discharge Date and Time
Discharge Date/Time: 01/06/24 15:03
Print Language: GEORGIAN
[2024-01-06 14:59] VITALS: BMI 23.9
[2024-01-06 15:02] VITALS: BP 118/66
== END 2024-01-06 15:03 | disposition home or self-care (01) ==
LOC: EMR 13:27
PROVIDERS: EMERGENCY PHYSICIAN Emergency Medicine; FAMILY PHYSICIAN Nurse Practitioner Family
DX: R06.02 Shortness of breath (principal); T36.0X5A Adverse effect of penicillins, initial encounter; T36.1X5A Adverse effect of cephalosporins and other beta-lactam antibiotics, initial encounter
CPT/HCPCS: 99283; 93005

== ENCOUNTER 2024-02-13 21:29 | Emergency (ER) | payer OTHER, SELFPAY ==
[2024-02-13 21:33] VITALS: BP 113/45
--- NOTE | 2024-02-13 22:56 | ED.GENMED ---
History of Present Illness
<RENETTA Conway - Last Filed: 02/14/24 04:35>
General
Chief Complaint: Foreign Body Ingestion
Source: patient
Time Seen by Provider: 02/13/24 22:52
Nursing documentation reviewed up to this point in time: agreed with
History of Present Illness
History of Present Illness:
A 43-year-old female with a past medical history of migraines, GERD, generalized anxiety, depression presents to the emergency department for ingestion of worms and tomato sauce x 2 days. Patient states that tonight she noticed multiple worms and
her tomato sauce to which she immediately called her primary care physician who recommended she present to the emergency room for further workup. She states that she had been it over the last 2 days. She that she fully cooked/boiled the sauce.
Patient confirms that all maggots have appeared and not motile. 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
moment. She denies nausea, vomiting, diarrhea, headache, fever, chills.
Past History
<RENETTA Conway - Last Filed: 02/14/24 04:35>
Past History
ED Past Medical History: GERD, Psychiatric (Generalized anxiety and depression), Other (Vertigo) and Other (migraines)
ED Past Surgical History: Appendectomy and Tonsilectomy
Social History
Tobacco: Non-smoker
Alcohol: Occasional
Drug: None
Personal:
Living: with family
Employment: Not employed
Family History
Family History: Diabetes, Hypertension and Other (Alzheimer's)
Review of Systems
<RENETTA Conway - Last Filed: 02/14/24 04:35>
Review of Systems
Allergies reviewed?: Yes
All Other Systems: ROS reviewed and negative except as documented in HPI and ROS
Phy Exam
<Gt Damon [facility] - Last Filed: 02/14/24 04:35>
General Physical Exam
General Presentation: well appearing and no apparent distress
General age: appears stated age
General Skin: warm
General Habitus: normal
General Mental: alert
General Hydration: appears well hydrated
Eye Exam
Eye Exam: PERRL
Cardiovascular Exam
Cardiovascular Exam: regular rate/rhythm, no edema, no gallop and no murmur
Pulmonary Exam
Pulmonary Exam: lungs clear, no respiratory distress, no rales, no crackles, no rhonchi, no wheezing and no cough
Musculoskeletal Exam
Musculoskeletal Exam: full ROM
Psychiatric Exam
Psychiatric Exam: normal mood/affect
Course
<Gt Damon MARIA GUADALUPE - Last Filed: 02/14/24 04:35>
Vital Signs
Initial and Last Documented VS:
Initial Vital Signs
Temp Pulse Resp BP Pulse Ox
98.6 F 85 17 113/45 100
02/13/24 21:33 02/13/24 21:33 02/13/24 21:33 02/13/24 21:33 02/13/24 21:33
Last Documented Vital Signs
Temp Pulse Resp BP Pulse Ox
98.6 F 80 18 113/50 99
02/13/24 21:33 02/14/24 00:03 02/14/24 00:03 02/14/24 00:03 02/14/24 00:03
<Chantel Parson DO - Last Filed: 02/14/24 00:31>
Vital Signs
Initial and Last Documented VS:
Initial Vital Signs
Temp Pulse Resp BP Pulse Ox
98.6 F 85 17 113/45 100
02/13/24 21:33 02/13/24 21:33 02/13/24 21:33 02/13/24 21:33 02/13/24 21:33
Last Documented Vital Signs
Temp Pulse Resp BP Pulse Ox
98.6 F 80 18 113/50 99
02/13/24 21:33 02/14/24 00:03 02/14/24 00:03 02/14/24 00:03 02/14/24 00:03
<RENETTA Conway - Last Filed: 02/14/24 04:35>
MDM/Problems Addressed
Differential Diagnosis Includes:
Nontoxic larva ingestion, factitious disorder,
<Chantel Parson DO - Last Filed: 02/14/24 00:31>
*Pulse Oximetry
Patient hypoxic: no
*Critical Care Note
Total Time (30-74mins, 75-104mins- exclusive of procedures): Not Applicable
ED Attending Note
<RENETTA Conway - Last Filed: 02/14/24 04:35>
-
Portions of this chart may have been created with voice recognition software.� Occasional wrong word or��sound alike� substitutions may have occurred due to the inherent limitations of voice recognition software.
<Chantel Parson DO - Last Filed: 02/14/24 00:31>
ED Attending Note
Patient seen and examined by attending physician: Yes
I performed the substantive portion of visit, reviewed & personally made and approve the management plan that is documented in note by myself or CONSTANTINO.: Yes
ED Attending Note:
This is a 43-year-old woman with history of migraine headaches, anxiety/depression who presents under the guidance of her PCP after she discovered small white worms in the bottom of a can of tomato sauce. She has been consuming this tomato sauce
over the past 2 days.
She has had no abdominal pain, no diarrhea, no nausea, no fever, no cough or shortness of breath.
She has brought this can of tomato sauce with her that does indeed contain several small white immobile worms that appear consistent with small maggots.
Patient is bright and alert, pleasant, appears in no acute distress.
Heart is regular rate and rhythm.
Lungs are clear to auscultation. Respirations are easy nonlabored.
Abdomen is soft, nontender.
Skin is warm and dry, normal color. Good turgor.
Awake alert and oriented x 3. Gait is gaxiola and steady. No focal neurodeficits.
Patient has inadvertently consumed immobile/ maggots contained within tomato sauce. Maggots were discovered at the bottom of the can, few in number.
We did discuss that although unsettling, there is no concern for toxicity/illness from such consumption.
I do recommend that patient notify the tomato sauce manufacture to discuss/report her findings. She plans to call the company in the a.m.
Follow-up with PCP as needed.
Return precautions discussed especially if she develops intractable vomiting, diarrhea, abdominal pain.
Discharge Plan
Departure
Patient Disposition: Home (Routine Discharge)
Date of Disposition: 02/13/24
Time of Disposition: 23:55
Patient with high blood pressure during this ER visit?: No
Condition: Good
Discharge Problem:
nontoxic larvae ingestion
Prescriptions:
No Action
famotidine 40 MG tablet
40 mg PO PRN PRN (Reason: GERD)
buspirone 5 MG tablet
0.5 tab PO DAILY
guaifenesin [Mucus Relief ER] 600 MG tablet extended release 12hr
600 mg PO Q12H
Referrals:
Sharmin Ragland CRNP [Family Provider] - As needed
Activity Restrictions/Additional Instructions:
As we discussed, call the tomato sauce hard [employer] tomorrow to notify them of discovery of larva in the can.
Interventions
Interventions:
*Risk Screen - Suicide Last Done: 02/13/24 21:33
*General Assessment Last Done: 02/13/24 22:35
*Neglect/Abuse Screening Last Done: 02/13/24 21:33
*ED COVID-19 Vaccine History Last Done: 02/13/24 22:35
*Nursing Disposition Last Done: 02/14/24 00:03
ZD-Vnxnku-Qvusvjcccq Assessment Last Done: 02/13/24 22:34
Discharge Date and Time
Discharge Date/Time: 02/14/24 00:07
Print Language: LATVIAN
[2024-02-14 00:03] VITALS: BP 113/50
== END 2024-02-14 00:07 | disposition home or self-care (01) ==
LOC: EMR 21:29
PROVIDERS: EMERGENCY PHYSICIAN Emergency Medicine; FAMILY PHYSICIAN Nurse Practitioner Family
DX: T18.9XXA Foreign body of alimentary tract, part unspecified, initial encounter (principal); W44.F9XA Other object of natural or organic material, entering into or through a natural orifice, initial encounter; K21.9 Gastro-esophageal reflux disease without esophagitis; Z90.49 Acquired absence of other specified parts of digestive tract
CPT/HCPCS: 99282

== ENCOUNTER 2024-05-06 22:27 | Emergency (ER) | payer OTHER, SELFPAY ==
[2024-05-06 22:29] VITALS: BP 117/49
[2024-05-06 23:39] VITALS: BMI 18.9
--- NOTE | 2024-05-06 23:52 | ED.GENMED ---
History of Present Illness
General
Chief Complaint: Throat Problem
Source: patient
Exam Limitations: none
Time Seen by Provider: 05/06/24 23:44
History of Present Illness
History of Present Illness:
See MDM
Past History
Past History
ED Past Medical History: GERD, Psychiatric (Generalized anxiety and depression), Other (Vertigo) and Other (migraines)
ED Past Surgical History: Appendectomy and Tonsilectomy
Social History
Tobacco: Non-smoker
Alcohol: Occasional
Drug: None
Personal:
Living: with family
Employment: Not employed
Family History
Family History: Diabetes, Hypertension and Other (Alzheimer's)
Phy Exam
Physical Exam
Physical Exam:
See MDM
Course
Orders/Labs/Results
Orders:
Orders
05/06/24 23:37
COVID-19 Antigen Urgent
Source: Nasal Swab
Influenza A+B Rapid Molecular Urgent
CHANNING Source: Nasal Swab
Specimen Description:
Date Specimen was Collected: 05/06/24
Time Specimen was Collected: 22:57
Rapid Strep Group A Urgent
CHANNING Source: Throat/Pharynx
Specimen Description:
Date Specimen was Collected: 05/06/24
Time Specimen was Collected: 22:57
Vital Signs
Initial and Last Documented VS:
Initial Vital Signs
Temp Pulse Resp BP Pulse Ox
98.8 F 78 18 117/49 100
05/06/24 22:29 05/06/24 22:29 05/06/24 22:29 05/06/24 22:29 05/06/24 22:29
Last Documented Vital Signs
Temp Pulse Resp BP Pulse Ox
98.8 F 78 18 117/49 100
05/06/24 22:29 05/06/24 22:29 05/06/24 22:29 05/06/24 22:29 05/06/24 22:29
MDM/Problems Addressed
Differential Diagnosis Includes:
HPI and MDM Narrative:
43-year-old female presenting for evaluation of congestion and sore throat. Patient picked up a viral illness that she described as the GI bug. Symptoms started to improve but then she started to develop congestion, ear pain and sore throat. On
exam, she is well-appearing nontoxic. She does have rhinorrhea and postnasal drip. TMs are clear. No clinical signs of strep throat noted. We discussed the likelihood of viral pharyngitis and I did suggest steroids. Due to side effects, patient
does not want to start steroid
Physical exam
General: Well appearing and non-toxic
HEENT: protecting airway. Postnasal drip. Rhinorrhea. Posterior pharynx mildly erythematous but no exudate. Uvula midline. TMs clear
Neck: appears supple
CV: No evidence of cyanosis
Resp: No accessory muscle use. Lungs clear
Abd: Non-distended
Extremities: No deformities
Neuro: alert
Psych: Normal affect
Skin: Intact
Problems Addressed including Acute and Chronic Conditions affecting care:
1. Pharyngitis
Acuity: acute
Prognosis: stable
Details: Likely viral. Will obtain strep throat testing. Patient declining steroids
Updates
Viral testing and strep throat negative. Will write for Z-Ab to be taken in the next 48 hours if symptoms or not improved
Differential Diagnosis (but not limited to): Sinusitis, viral pharyngitis, bacterial pharyngitis
Testing considered: Chest x-ray but symptoms appear to be upper respiratory
Drug therapy (if applicable): OTC meds, please see d/c instruction regarding Rx drugs
Amount and/or Complexity of Data Reviewed
Clinical info obtained from: Patient
External data reviewed: N/A
Labs I independently reviewed (but not limited to): Strep throat test
Radiology: N/A
Pulse Ox: not hypoxic
EKG independently reviewed: N/A
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
Critical Care: N/A
Risk of Complication:
Social Determinants of health: Good social support
Discussed with other providers: N/A
Escalation of Care includes Admit/Obs: After being observed in the Emergency Department, pt stable for discharge.
Occasional wrong word or 'sound a like' substitutions may have occurred due to the inherent limitations of voice recognition software. Read the chart carefully and recognize, using context, where substitutions have occurred.
*Critical Care Note
Total Time (30-74mins, 75-104mins- exclusive of procedures): Not Applicable
ED Attending Note
-
Portions of this chart may have been created with voice recognition software.� Occasional wrong word or��sound alike� substitutions may have occurred due to the inherent limitations of voice recognition software.
Discharge Plan
Departure
Patient Disposition: Home (Routine Discharge)
Date of Disposition: 05/07/24
Time of Disposition: 00:34
Patient with high blood pressure during this ER visit?: No
Discharge Problem:
Pharyngitis
Instructions: Sore throat in adults
Prescriptions:
New
azithromycin 250 mg tablet
250 mg PO DAILY 6 Days Qty: 6 0RF
No Action
famotidine 40 MG tablet
40 mg PO PRN PRN (Reason: GERD)
buspirone 5 MG tablet
0.5 tab PO DAILY
guaifenesin [Mucus Relief ER] 600 MG tablet extended release 12hr
600 mg PO Q12H
Referrals:
Sharmin Ragland CRNP [Family Provider] -
Activity Restrictions/Additional Instructions:
Please return for any worsening symptoms.
You may return at any time if you have further concerns.
Please follow up with your doctor at the first available appointment, preferably this week.
You can start the antibiotics in 48 hours if symptoms are not improving.
Thank you for choosing [facility].
Interventions
Interventions:
*Risk Screen - Suicide Last Done: 05/06/24 22:29
*General Assessment Last Done: 05/06/24 22:29
*Neglect/Abuse Screening Last Done: 05/06/24 22:29
*ED COVID-19 Vaccine History Last Done: 05/06/24 22:29
ED-EENT Assessment Last Done: 05/06/24 23:41
ED- Pulmonary Assessment Last Done: 05/06/24 23:41
Discharge Date and Time
Print Language: HEBREW
[2024-05-07 00:02] LABS: COVID-19 Antigen Negative (Negative)
== END 2024-05-07 00:47 | disposition home or self-care (01) ==
LOC: EMR 22:27
PROVIDERS: EMERGENCY PHYSICIAN Student in an Organized Health Care Education/Training Program; FAMILY PHYSICIAN Nurse Practitioner Family
DX: J02.9 Acute pharyngitis, unspecified (principal); K21.9 Gastro-esophageal reflux disease without esophagitis; Z90.49 Acquired absence of other specified parts of digestive tract
CPT/HCPCS: 99283; 87070; 87502; 87811; 87880

== ENCOUNTER 2024-05-11 13:32 | Emergency (ER) | payer OTHER, SELFPAY ==
[2024-05-11 13:49] VITALS: BP 104/65
--- NOTE | 2024-05-11 13:50 | ED.GENMED ---
ED Provider Triage
-
Patient seen by provider in Triage?: Seen in Triage
Attestation: A medical screening examination has been initiated by a qualified medical provider. Based on the assessment performed at this time, it has been determined that an emergent medical condition may exist and the patient has been informed
that further medical evaluation and possible additional diagnostic testing may be needed.
HPI: 43 yo female presents for evaluation of 'feeling stunned' after completing a meditation session. She states she felt 'stunned' for 90 minutes and is worried it may have caused psychologic issues. Was seen here 05/06 and given abx for a URI,
states the URI is improving despite not completing the course. Feels back to normal now. Requesting to 'talk to someone' to be sure she is ok.
GENERAL: Alert , in no apparent distress
EYE: No visual abnormalities.
NECK: Trachea midline
ENT: No visible abnormalities.
LUNGS: No acute respiratory distress
NEUROLOGICAL: Alert and oriented
SKIN: Skin intact. No visible changes.
MUSCULOSKELETAL: Moving extremities normally
PSYCH: Normal and appropriate interaction.
This is a medical evaluation conducted in person to initiate diagnostic evaluation and provide initial therapeutics. Please see further documentation by the treating clinician.
History of Present Illness
General
Chief Complaint: Fatigue
Time Seen by Provider: 05/11/24 16:21
History of Present Illness
History of Present Illness:
43-year-old female presents to the emergency department for evaluation of 'feeling stunned' after meditating for a prolonged period of time. She states she is concerned because she was not 'deeply meditating' rather she was simply lying on her bed
with her eyes closed saying the rosary prayers. She states she felt as though she could not move for a prolonged time after this was over. She currently denies any symptoms of the nasal congestion which is persistent from a recent URI, was seen
here for the symptoms 5 days ago and treated with azithromycin however she admits to only taking 1 dose. Denies any hallucinations, suicidal, or homicidal ideation.
Past History
Past History
ED Past Medical History: GERD, Psychiatric (Generalized anxiety and depression), Other (Vertigo) and Other (migraines)
ED Past Surgical History: Appendectomy and Tonsilectomy
Social History
Tobacco: Non-smoker
Alcohol: Occasional
Drug: None
Personal:
Living: with family
Employment: Not employed
Family History
Family History: Diabetes, Hypertension and Other (Alzheimer's)
Review of Systems
Review of Systems
Allergies reviewed?: Yes
All Other Systems: ROS reviewed and negative except as documented in HPI and ROS
Phy Exam
Physical Exam
Physical Exam:
GEN: Well appearing, NAD, WDWN
HEENT: Oral mucosa moist, no scleral icterus
Cardiac: Regular rate
Lung: No respiratory distress, no tachypnea
MSK: No gross deformity or injuries
Skin: Good color, no pallor or jaundice, no rashes
Neuro: AO x3, moves all extremities freely
Psych: Calm, cooperative
Course
Vital Signs
Initial and Last Documented VS:
Initial Vital Signs
Temp Pulse Resp BP Pulse Ox
99 F 98 18 104/65 100
05/11/24 13:49 05/11/24 13:49 05/11/24 13:49 05/11/24 13:49 05/11/24 13:49
Last Documented Vital Signs
Temp Pulse Resp BP Pulse Ox
99 F 68 18 114/75 99
05/11/24 13:49 05/11/24 16:49 05/11/24 16:49 05/11/24 16:49 05/11/24 16:49
MDM/Problems Addressed
MDM/Problems Addressed:
Patient appears clinically well with normal vital signs. This does not appear to be an emergent issue, unable to adequately comment on the patient's meditation habits and whether this could be creating a psychologic issue for her
*Critical Care Note
Total Time (30-74mins, 75-104mins- exclusive of procedures): Not Applicable
ED Attending Note
-
Portions of this chart may have been created with voice recognition software.� Occasional wrong word or��sound alike� substitutions may have occurred due to the inherent limitations of voice recognition software.
Discharge Plan
Departure
Patient Disposition: Home (Routine Discharge)
Date of Disposition: 05/11/24
Time of Disposition: 16:55
Patient with high blood pressure during this ER visit?: No
Discharge Problem:
Dizziness
Instructions: Dizziness
Prescriptions:
No Action
famotidine 40 MG tablet
40 mg PO PRN PRN (Reason: GERD)
buspirone 5 MG tablet
0.5 tab PO DAILY
guaifenesin [Mucus Relief ER] 600 MG tablet extended release 12hr
600 mg PO Q12H
azithromycin 250 mg tablet
250 mg PO DAILY 6 Days Qty: 6 0RF
Referrals:
Sharmin Ragland CRNP [Family Provider] -
Activity Restrictions/Additional Instructions:
At this time I do not see any immediate concern regarding a prolonged vegetative state. Please avoid prolonged meditative exercises as being sedentary for prolonged periods is not good for your functional health. Please follow-up with your primary
care physician with any further concerns
Interventions
Interventions:
*Risk Screen - Suicide Last Done: 05/11/24 13:49
*General Assessment Last Done: 05/11/24 13:49
*Neglect/Abuse Screening Last Done: 05/11/24 13:49
ED- Fall Risk Assessment Last Done: 05/11/24 16:47
*ED COVID-19 Vaccine History Last Done: 05/11/24 16:47
*Nursing Disposition Last Done: 05/11/24 17:00
Discharge Date and Time
Discharge Date/Time: 05/11/24 17:05
Print Language: MACEDONIAN
--- NOTE | 2024-05-11 16:47 | EDRN ---
Pt walking around hallways yelling for help, several team members offered to assist pt and pt returned to room and states that she is ready for discharge and needs a wheelchair, this RN will go and get wheelchair and discharge paperwork.
[2024-05-11 16:49] VITALS: BP 114/75
== END 2024-05-11 17:05 | disposition home or self-care (01) ==
LOC: EMR 13:32
PROVIDERS: EMERGENCY PHYSICIAN Emergency Medicine; FAMILY PHYSICIAN Nurse Practitioner Family
DX: R42 Dizziness and giddiness (principal); K21.9 Gastro-esophageal reflux disease without esophagitis
CPT/HCPCS: 99282

== ENCOUNTER 2024-08-22 07:49 | Emergency (ER) | payer OTHER, SELFPAY ==
[2024-08-22 07:56] VITALS: BP 113/70
--- NOTE | 2024-08-22 08:45 | EDRN ---
Assumed care of pt.
[2024-08-22 08:57] VITALS: BMI 19.2
--- NOTE | 2024-08-22 09:01 | ECGCV ---
<insert name of provider> notified of ECG critical value identified by electronic interpretation on ECG completed on <insert date>, at <insert time>.
[2024-08-22 09:20] VITALS: BP 114/67
--- NOTE | 2024-08-22 09:25 | EDRN ---
Dulce Mills NP in room w/ pt
--- NOTE | 2024-08-22 09:32 | ED.GENMED ---
History of Present Illness
General
Chief Complaint: Vaginal Bleeding
Source: patient
Exam Limitations: none
Time Seen by Provider: 08/22/24 08:49
Nursing documentation reviewed up to this point in time: agreed with
History of Present Illness
History of Present Illness:
43-year-old female presents to the ER for evaluation. Patient has multiple complaints. She reports intermittently since July after stomping her feet she has had' nerve pain.' She complains of nerve pain in her feet bilaterally but reports she
has had nerve pain all over and recently had' nerve pain in my heart yesterday.' She complains of feeling very stressed and has ' stress and inflammation throughout my body causing my voice to be hoarse, vocal cords to be hoarse.' In addition she
complains of vaginal spotting that started yesterday and some lower abdominal bloating. Her last menstrual period was 2 weeks ago.
Past History
Past History
ED Past Medical History: GERD, Psychiatric (Generalized anxiety and depression), Other (Vertigo) and Other (migraines)
ED Past Surgical History: Appendectomy and Tonsilectomy
Social History
Tobacco: Non-smoker
Alcohol: Occasional
Drug: None
Personal:
Living: with family
Employment: Not employed
Family History
Family History: Diabetes, Hypertension and Other (Alzheimer's)
Review of Systems
Review of Systems
Allergies reviewed?: Yes
All Other Systems: ROS reviewed and negative except as documented in HPI and ROS
Constitutional: Reports no symptoms
Respiratory: Reports no symptoms
Cardiac: Reports no symptoms
ABD/GI: Reports no symptoms
: Reports other (vaginal spotting )
Skin: Reports no symptoms
Neurological: Reports other (nerve pain )
Psychiatric: Reports anxiety
Phy Exam
General Physical Exam
General Presentation: no apparent distress
General age: appears stated age
General Skin: warm and dry
General Mental: alert
General Hydration: appears well hydrated
Cardiovascular Exam
Cardiovascular Exam: regular rate/rhythm, no murmur and normal peripheral pulses
Pulmonary Exam
Pulmonary Exam: lungs clear and no respiratory distress
Gastrointestinal Exam
Gastrointestinal Exam: normal bowel sounds, non tender and soft
Genitourinary Exam Female
Exam Female: other (no blood in vaginal canal no bleeding from OS, OS seems to a small cyst like lesion on outer OS )
Neurological Exam
Neurological Exam: alert, oriented x3, no motor deficits, no sensory deficits and other (Normal intact sensation to bilateral lower extremities; normal strength bilateral upper extremities)
Musculoskeletal Exam
Musculoskeletal Exam: full ROM
Skin Exam
Skin Exam: normal color and warm/dry
Psychiatric Exam
Psychiatric Exam: normal mood/affect
Course
Orders/Labs/Results
Orders:
Orders
08/22/24 09:06
IV Insert/Care/Rem.- Treatment PRN
08/22/24 09:30
Add On- LAB Urgent
Tests Added?: tsh with reflex t4
08/22/24 09:31
0.9% Sodium Chloride 1000 ml [Nss] 1,000 ml IV BOLUS
08/22/24 09:35
Add On- LAB Urgent
Tests Added?: qualitative
08/22/24 09:48
Complete Blood Count/With Diff Urgent
Comprehensive Metabolic Panel Urgent
HCG, Serum Qualitative Screen Urgent
Comment: ADD ON
Magnesium Urgent
Comment: ADD ON
TSH Reflex To Free T4 Urgent
08/22/24 09:54
Add On- LAB Urgent
Tests Added?: magesium
Abnormal Lab Results
08/22/24
09:48
WBC 4.7 L 10^3/uL
(4.8-10.8)
RBC 4.00 L 10^6/uL
(4.20-5.40)
Hgb 10.1 L g/dL
(12.0-16.0)
Hct 32.1 L %
(37.0-47.0)
MCV 80.3 L fL
(81.0-99.0)
MCH 25.3 L pg
(27.0-31.0)
MCHC 31.5 L g/dL
(33.0-37.0)
MPV 11.0 H fL
(7.4-10.4)
Absolute Lymphs (auto) 0.7 L 10^3/uL
(1.2-3.4)
Immature Gran % 0.6 H %
(0-0.5)
Lymphocytes % 15.3 L %
(20.5-51.1)
Chloride 108 H mmol/L
(98-107)
08/22/24 09:48
08/22/24 09:48
Vital Signs
Initial and Last Documented VS:
Initial Vital Signs
Temp Pulse Resp BP Pulse Ox
98.9 F 99 16 113/70 98
08/22/24 07:56 08/22/24 07:56 08/22/24 07:56 08/22/24 07:56 08/22/24 07:56
Last Documented Vital Signs
Temp Pulse Resp BP Pulse Ox
98.9 F 63 14 100/63 100
08/22/24 07:56 08/22/24 11:41 08/22/24 11:41 08/22/24 11:41 08/22/24 11:41
MDM/Problems Addressed
MDM/Problems Addressed:
As documented patient is a 43-year-old female presents with multiple varying complaints. She believes she is under a lot of stress and anxiety and that her body is inflamed. She complains of nerve pain in her feet. She also complains of vaginal
spotting. She presents awake alert no acute distress she is fixated on the fact that her body is in a state of distress and inflammation. She however is in no acute distress. She is anxious. She denies any fever or chills and is afebrile abdomen
soft nontender hemoglobin mildly low at 10.1 chemistries and thyroid unremarkable.
She does complain of nerve pain however has no neurological deficits
Vaginal exam shows no obvious bleeding no bleeding from cervix no bleeding in vault. The cervical os seems to have a small mucus-like lesion. In review of past medical records patient has a history of endocervical polyps.
I did review the importance of following up with her sales and service advisor for this. She was given our [facility] group for additional follow-up. She has had normal routine Pap smears. Ultrasound was initially ordered as she was very anxious over this vaginal
bleeding however when she got ultrasound she declined.
No obvious findings on work up.
Patient is well-appearing though anxious and is in no acute distress.
Discuss close outpt follow up.
*Pulse Oximetry
Patient hypoxic: no
*Critical Care Note
Total Time (30-74mins, 75-104mins- exclusive of procedures): Not Applicable
ED Attending Note
-
Portions of this chart may have been created with voice recognition software.� Occasional wrong word or��sound alike� substitutions may have occurred due to the inherent limitations of voice recognition software.
Discharge Plan
Departure
Patient Disposition: Home (Routine Discharge)
Date of Disposition: 08/22/24
Time of Disposition: 12:08
Patient with high blood pressure during this ER visit?: No
Condition: Fair
Covid-19: Not Applicable
Discharge Problem:
Vaginal spotting
Prescriptions:
No Action
famotidine 40 MG tablet
40 mg PO PRN PRN (Reason: GERD)
buspirone 5 MG tablet
0.5 tab PO DAILY
guaifenesin [Mucus Relief ER] 600 MG tablet extended release 12hr
600 mg PO Q12H
azithromycin 250 mg tablet
250 mg PO DAILY 6 Days Qty: 6 0RF
Referrals:
Sharmin Ragland CRNP [Family Provider] -
Fide Chaudhari CNM [Certified Nurse Hand Tube Bender] -
Stand Alone Forms: Return to Work
Activity Restrictions/Additional Instructions:
As documented please continue to follow-up with your family doctor for other issues including pain.
Regarding abnormal vaginal spotting please follow-with your sales and service advisor. Return if any worsening of symptoms.
You are mildly anemic with a hemoglobin of 10.1. Please have this level rechecked by either your family doctor or [facility]S SPECIALIST.
Interventions
Interventions:
*Risk Screen - Suicide Last Done: 08/22/24 08:58
*General Assessment Last Done: 08/22/24 08:58
*Neglect/Abuse Screening Last Done: 08/22/24 08:58
*ED- Fall Risk Assessment Last Done: 08/22/24 08:58
*ED COVID-19 Vaccine History Last Done: 08/22/24 08:58
ED-Female Genitourinary Assessment Last Done: 08/22/24 09:45
Discharge Date and Time
Print Language: BARBADIAN
[2024-08-22] MEDS: NSS 1000 IV (09:52)
[2024-08-22 09:59] LABS: % Basophils 0.4 % (0-2); % Eosinophils 0.2 % (0-6); % Immature Granulocytes 0.6 % (0-0.5); % Lymphocytes 15.3 % (20.5-51.1); % Monocytes 8.5 % (1.7-9.3); Absolute Lymphocytes 0.7 10^3/uL (1.2-3.4); Absolute Monocytes 0.4 10^3/uL (0.1-0.6); Absolute Neutrophils 3.5 10^3/uL (1.4-6.5); Hematocrit 32.1 % (37.0-47.0); Hemoglobin 10.1 g/dL (12.0-16.0); Mean Corp Hgb Conc. 31.5 g/dL (33.0-37.0); Mean Corpuscular Hgb 25.3 pg (27.0-31.0); Mean Corpuscular Volume 80.3 fL (81.0-99.0); Nucleated Red Blood Cells % 0 %; Platelet Count 202 10^3/uL (130-400); Red Cell Dist. Width 13.9 % (11.5-14.5); White Blood Cell Count 4.7 10^3/uL (4.8-10.8)
[2024-08-22 10:00] VITALS: BP 99/58
[2024-08-22 10:16] LABS: ALT (SGPT) 11 U/L (0-35); AST (SGOT) 15 U/L (14-36); Albumin 3.9 g/dl (3.5-5.0); Alkaline Phosphatase 44 U/L (38-126); Blood Urea Nitrogen 16 mg/dl (7-17); Calcium 9.1 mg/dl (8.4-10.2); Carbon Dioxide 27 mmol/L (22-30); Chloride 108 mmol/L (98-107); Estimated Creatinine Clearance 82 ml/min; Glucose 86 mg/dl (70-99); Magnesium 2.1 mg/dl (1.6-2.3); Potassium 4.1 mmol/L (3.5-5.1); Sodium 141 mmol/L (135-145); Total Bilirubin 0.8 mg/dl (0.2-1.3); Total Protein 6.3 g/dl (6.3-8.2); eGFR > 60.00
[2024-08-22 10:45] LABS: TSH Reflex To Free T4 1.35 uIU/ml (0.47-4.68)
[2024-08-22 10:55] LABS: HCG, Serum Qualitative Screen Negative
[2024-08-22 11:04] VITALS: BP 99/63
--- NOTE | 2024-08-22 11:04 | EDRN ---
Pt stated she is full w/ ED compliance clerk called to notify US.
[2024-08-22 11:41] VITALS: BP 100/63
--- NOTE | 2024-08-22 11:41 | EDRN ---
Pt refused US and did not have a US done.
[2024-08-22 13:00] VITALS: BP 93/50
== END 2024-08-22 13:10 | disposition home or self-care (01) ==
LOC: EMR 07:49
PROVIDERS: Nurse Practitioner; EMERGENCY PHYSICIAN Emergency Medicine; FAMILY PHYSICIAN Nurse Practitioner Family
DX: N93.9 Abnormal uterine and vaginal bleeding, unspecified (principal); Z82.49 Family history of ischemic heart disease and other diseases of the circulatory system; Z83.3 Family history of diabetes mellitus; Z90.49 Acquired absence of other specified parts of digestive tract; K21.9 Gastro-esophageal reflux disease without esophagitis; F41.1 Generalized anxiety disorder
CPT/HCPCS: 99283; 96360; 80053; 83735; 84443; 84703; 85025

== ENCOUNTER 2025-02-09 09:38 | Emergency (ER) | payer OTHER, SELFPAY ==
[2025-02-09 09:51] VITALS: BP 116/70
[2025-02-09 10:20] VITALS: BMI 19.3
[2025-02-09 10:32] VITALS: BP 109/64
--- NOTE | 2025-02-09 10:32 | ED.GENMED ---
History of Present Illness
General
Chief Complaint: Allergic Reaction
Source: patient
Exam Limitations: none
Time Seen by Provider: 02/09/25 10:15
Nursing documentation reviewed up to this point in time: agreed with
History of Present Illness
History of Present Illness:
Note:
CHIEF COMPLAINT(S)
- Allergic reaction to raw honey.
- General malaise, chills, nasal congestion, digestive upset, with a history of symptoms similar to a systemic viral infection.
HISTORY OF PRESENT ILLNESS
The patient is a 44-year-old female who presented to the emergency department with concerns about an allergic reaction to raw honey. She reports that after consuming the honey, she experienced numbness in her mouth and upper lip, dizziness, shallow
breathing, and significant chills. The patient also reports ongoing symptoms consistent with a viral upper respiratory illness for several days, including headaches, sore throat, nasal congestion, and gastrointestinal upset characterized by diarrhea
for several days but denies any vomiting. She has taken a home COVID-19 test with negative results, and visited her primary care provider who also performed a strep test, which she reports as negative. The symptoms began last Sunday, with
intermittent periods of feeling better. Yesterday was particularly severe, with the patient bedridden all day.
PAST MEDICAL AND SURGICAL HISTORY
- Non-allergic rhinitis.
MEDICATIONS
- Saline nasal spray.
- Claritin (loratadine) occasionally.
- Vitamin D3.
- Vitamin K2.
- Probiotics on occasion.
- Chamomile tea.
PHYSICAL EXAM
General: Alert, no acute distress.
Skin: Warm, dry.
Head: Normocephalic, atraumatic.
Neck: Supple, trachea midline.
Eye Ears, Nose, Mouth and Throat: Oral mucosa moist.
Cardiovascular: Normal peripheral perfusion, No edema.
Respiratory: Respirations are non-labored.
Gastrointestinal: Abdomen nondistended.
Back: Normal range of motion, normal alignment.
Musculoskeletal: Normal ROM, normal strength.
Neurological: Alert and oriented to person, place, time, and situation, No focal neurological deficit observed.
Psychiatric: Cooperative, appropriate mood & affect.
PLAN
1. The patient will undergo screening for possible viral infections, including testing for influenza.
2. Blood tests including hemoglobin, electrolytes, and kidney function will be conducted to rule out abnormalities contributing to symptoms.
3. Advising the patient on symptomatic relief measures for the mild reaction to the raw honey. Suggestive option includes taking loratadine or Benadryl if symptoms persist or worsen.
4. Discussed with the patient the expected timeline for completing the diagnostics and reassessing treatment or discharge based on results, typically within one to one and a half hours if normal.
DIFFERENTIAL DIAGNOSIS
The Differential Diagnosis includes, in no particular order and is not limited to:
- Allergic reaction (mild) to raw honey.
- Viral upper respiratory infection.
- Influenza.
- Sinusitis.
- Acute rhinitis.
- Gastroenteritis.
- Food intolerance.
- Stress-related symptoms.
- Anxiety-induced hyperventilation.
- Non-allergic rhinitis exacerbation.
Disposition:
SUMMARY OF ENCOUNTER
The patient, a 44-year-old female, presented to the emergency department with concerns about a possible allergic reaction to raw honey, reporting symptoms such as numbness in the mouth and upper lip, dizziness, and shallow breathing. The exam
revealed no signs of mouth swelling, respiratory distress, or urticaria, and lung auscultation found clear breath sounds. Blood tests showed normal results, and the probability of a serious allergic reaction is considered unclear. As part of the
management plan, the patient is advised to avoid honey consumption. Given the possibility of a viral infection, the patient was also experiencing general malaise, chills, nasal congestion, and gastrointestinal discomfort.
PLAN
The patient should undergo screening for possible viral infections, including testing for influenza. Blood tests will be conducted to rule out abnormalities contributing to symptoms. Symptomatic relief measures are advised for the mild reaction to
raw honey, including antihistamines if symptoms persist or worsen.
PATIENT EDUCATION AND COUNSELING
The patient was advised to avoid consuming raw honey and to follow up with their primary care provider. If symptoms return or worsen, the patient should return to the emergency department.
FOLLOW-UP INSTRUCTIONS
The patient is advised to follow up with their primary care provider for ongoing management and observation.
MEDICAL DECISION MAKING
- Number and Complexity of Problems Addressed: Chronic conditions affecting care include non-allergic rhinitis. Differential diagnosis includes allergic reaction (mild) to raw honey, viral upper respiratory infection, influenza, sinusitis, acute
rhinitis, gastroenteritis, food intolerance, stress-related symptoms, anxiety-induced hyperventilation, and non-allergic rhinitis exacerbation.
- Data:
- Category 1: Review of normal blood test results.
- Risk: Prescription medication was considered to manage symptoms related to the allergic reaction, and symptomatic relief options such as antihistamines were discussed.
DIAGNOSIS
- Hypersensitivity to food, unspecified (ICD-10: T78.1XXA)
- Viral upper respiratory infection, unspecified (ICD-10: J06.9)
Past History
Past History
ED Past Medical History: GERD, Psychiatric (Generalized anxiety and depression), Other (Vertigo) and Other (migraines)
ED Past Surgical History: Appendectomy and Tonsilectomy
Social History
Tobacco: Non-smoker
Alcohol: Occasional
Drug: None
Personal:
Living: with family
Employment: Not employed
Family History
Family History: Diabetes, Hypertension and Other (Alzheimer's)
Phy Exam
Physical Exam
Physical Exam:
.
Course
Orders/Labs/Results
Orders:
Orders
02/09/25 10:32
Test Result ONCE
02/09/25 10:36
Complete Blood Count/With Diff Urgent
Comprehensive Metabolic Panel Urgent
Influenza A+B Rapid Molecular Urgent
[place] Source: Nasal Swab
Specimen Description:
02/09/25 10:41
HCG, Urine Qualitative Screen Urgent
Date Specimen was Collected: 02/09/25
Time Specimen was Collected: 10:35
Urinalysis Reflex To Culture Urgent
Date Specimen was Collected: 02/09/25
Time Specimen was Collected: 10:36
Urine Microscopic Reflex Cult Urgent
02/09/25 10:51
COVID-19 Antigen Urgent
Source: Nasal Swab
Abnormal Lab Results
02/09/25 02/09/25
10:36 10:41
RBC 4.10 L 10^6/uL
(4.20-5.40)
Hgb 11.5 L g/dL
(12.0-16.0)
Hct 34.9 L %
(37.0-47.0)
MPV 10.8 H fL
(7.4-10.4)
Absolute Lymphs (auto) 0.6 L 10^3/uL
(1.2-3.4)
Neutrophils % 79.7 H %
(42.2-75.2)
Lymphocytes % 11.1 L %
(20.5-51.1)
Chloride 108 H mmol/L
(98-107)
Ur Occult Blood Reflex 4+ A
(Negative)
Urine RBC 50-60 A /HPF
(0-2)
Urine Bacteria (Reflex) Few A
(Negative)
Urine Albumin (Reflex) 2+ A
(Neg - Trace)
02/09/25 10:36
02/09/25 10:36
Vital Signs
Initial and Last Documented VS:
Initial Vital Signs
Temp Pulse Resp BP Pulse Ox
98 F 84 16 116/70 98
02/09/25 09:51 02/09/25 09:51 02/09/25 09:51 02/09/25 09:51 02/09/25 09:51
Last Documented Vital Signs
Temp Pulse Resp BP Pulse Ox
98 F 65 16 104/72 98
02/09/25 09:51 02/09/25 11:00 02/09/25 11:00 02/09/25 11:00 02/09/25 10:32
*Pulse Oximetry
SaO2: 98
Oxygen Mode of Delivery: Room air
Patient hypoxic: no
*Critical Care Note
Total Time (30-74mins, 75-104mins- exclusive of procedures): Not Applicable
ED Attending Note
-
Portions of this chart may have been created with voice recognition software.� Occasional wrong word or��sound alike� substitutions may have occurred due to the inherent limitations of voice recognition software.
Discharge Plan
Departure
Patient Disposition: Home (Routine Discharge)
Date of Disposition: 02/09/25
Time of Disposition: 11:24
Patient with high blood pressure during this ER visit?: No
Condition: Good
Discharge Problem:
Allergic reaction, Diarrhea
Instructions: Allergic reaction - ED (DC), Acute Diarrhea
Prescriptions:
No Action
azelastine [Astelin] 137 mcg (0.1 %) [place],Non-Aerosol
1 spray INTRANASAL BID
Referrals:
Sharmin Ragland CRNP [Family Provider] - Call in 1-3 days for appt
Interventions
Interventions:
*Risk Screen - Suicide Last Done: 02/09/25 09:51
*General Assessment Last Done: 02/09/25 10:18
*Neglect/Abuse Screening Last Done: 02/09/25 09:51
*ED- Fall Risk Assessment Last Done: 02/09/25 10:18
*ED COVID-19 Vaccine History Last Done: 02/09/25 10:18
*ED Influenza Vaccine History Last Done: 02/09/25 10:18
*Nursing Disposition Last Done: 02/09/25 11:34
ED- Cardiac Assessment Last Done: 02/09/25 10:23
ED- Pulmonary Assessment Last Done: 02/09/25 10:23
ED-Skin Assessment Last Done: 02/09/25 10:23
Discharge Date and Time
Discharge Date/Time: 02/09/25 11:37
Print Language: ESTONIAN
[2025-02-09 10:42] LABS: Hematocrit 34.9 % (37.0-47.0); Hemoglobin 11.5 g/dL (12.0-16.0); Mean Corp Hgb Conc. 33.0 g/dL (33.0-37.0); Mean Corpuscular Volume 85.1 fL (81.0-99.0); Nucleated Red Blood Cells % 0 %; Platelet Count 198 10^3/uL (130-400); Red Cell Dist. Width 13.2 % (11.5-14.5)
[2025-02-09 10:53] LABS: Urine Character Clear (Clear)
[2025-02-09 10:59] LABS: HCG, Urine Qualitative Screen Negative
[2025-02-09 11:00] VITALS: BP 104/72
[2025-02-09 11:03] LABS: ALT (SGPT) 13 U/L (0-35); AST (SGOT) 16 U/L (14-36); Albumin 4.7 g/dl (3.5-5.0); Alkaline Phosphatase 51 U/L (38-126); Blood Urea Nitrogen 16 mg/dl (7-17); Calcium 9.2 mg/dl (8.4-10.2); Carbon Dioxide 26 mmol/L (22-30); Chloride 108 mmol/L (98-107); Estimated Creatinine Clearance 82 ml/min; Glucose 95 mg/dl (70-99); Potassium 4.3 mmol/L (3.5-5.1); Sodium 140 mmol/L (135-145); Total Protein 7.3 g/dl (6.3-8.2); eGFR > 60.00
[2025-02-09 11:11] LABS: Urine Red Blood Cell 50-60 /HPF (0-2)
[2025-02-09 11:16] LABS: COVID-19 Antigen Negative (Negative)
== END 2025-02-09 11:37 | disposition home or self-care (01) ==
LOC: EMR 09:38
PROVIDERS: EMERGENCY PHYSICIAN Emergency Medicine; FAMILY PHYSICIAN Nurse Practitioner Family
DX: T78.40XA Allergy, unspecified, initial encounter (principal); X58.XXXA Exposure to other specified factors, initial encounter; R19.7 Diarrhea, unspecified; K21.9 Gastro-esophageal reflux disease without esophagitis; F41.1 Generalized anxiety disorder; Z74.01 Bed confinement status; Z82.49 Family history of ischemic heart disease and other diseases of the circulatory system; Z83.3 Family history of diabetes mellitus; Z90.49 Acquired absence of other specified parts of digestive tract
CPT/HCPCS: 99283; 80053; 81003; 81015; 81025; 85025; 87502; 87811